=== PATIENT | male | born 2000 | race Caucasian/White ===

== ENCOUNTER 2023-05-03 15:05 | Emergency (ER) | payer OTHER, SELFPAY ==
[2023-05-03 15:29] VITALS: BP 119/75; PULSE 67; RESP 18; TEMP 36.3; O2SAT 99
--- NOTE | 2023-05-03 15:58 | ED_ITS ---
HPI - Wound/Laceration General Time Seen by Provider: 15:59 Date Seen: 05/03/23 Chief Complaint: Laceration/Wound Stated Complaint: Cut left index finger at work Time Seen by Provider: 05/03/23 15:58 Source: patient and RN notes reviewed Mode of arrival: ambulatory Limitations: no limitations History of Present Illness HPI narrative: Patient is a 22-year-old male coming in after cutting his left index finger. He cut it longitudinally along the medial side of the finger. There is some mild oozing on arrival, bleeding is controlled with compression. He is unaware of his tetanus status. No numbness or tingling. No other injuries. Happened just prior to coming in. Place: work Related Data Home Medications Medication Instructions Recorded Confirmed No Known Home Medications 05/03/23 05/03/23 Allergies Allergy/AdvReac Type Severity Reaction Status Date / Time No Known Drug Allergies Allergy Verified 05/03/23 15:29 Review of Systems Narrative: As per HPI Exam Const: Vital Signs, click to edit/add: Vital Signs - 24 hr 05/03/23 15:29 Temperature 97.3 F L Pulse Rate [Right Pulse Oximeter] 67 Respiratory Rate 18 Blood Pressure [Ri ght Upper Arm] 119/75 Pulse Oximetry 99 Oxygen Delivery Me thod Room Air Documenting provider has reviewed patient's vital signs: yes Other: Patient's bandaging was removed, has a vertically situated laceration running along the medial side of his left index finger. There is a slight curvature but overall linear, total length around 1.5 cm. Slight wound edge oozing of blood. Just into the subcutaneous tissue, does not go deeper. With movement the skin edges do not stay well approximated, do feel that this would be best suited with suture repair. Course Course Hospital Course: Nursing staff looked up his tetanus, up-to-date in 2014. Vital Signs Vital signs: Initial Vital Signs Temperature 97.3 F L 05/03/23 15:29 Temperature Source Temporal Artery Scan 05/03/23 15:29 Pulse Rate 67 05/03/23 15:29 Respiratory Rate 18 05/03/23 15:29 Blood Pressure 119/75 05/03/23 15:29 Blood Pressure Mean 89 05/03/23 15:29 Blood Pressure Position Sitting 05/03/23 15:29 Pulse Oximetry 99 05/03/23 15:29 Oxygen Delivery Method Room Air 05/03/23 15:29 Vital Signs Temperature 97.3 F L 05/03/23 15:29 Pulse Rate 67 05/03/23 15:29 Respiratory Rate 18 05/03/23 15:29 Blood Pressure 119/75 05/03/23 15:29 Pulse Oximetry 99 05/03/23 15:29 Oxygen Delivery Method Room Air 05/03/23 15:29 Temperature 97.3 F L 05/03/23 15:29 Pulse Rate 67 05/03/23 15:29 Respiratory Rate 18 05/03/23 15:29 Blood Pressure 119/75 05/03/23 15:29 Pulse Oximetry 99 05/03/23 15:29 Oxygen Delivery Method Room Air 05/03/23 15:29 Discharge Plan Discharge Clinical Impression: Finger laceration Patient Disposition: Home, Self-Care Condition: Stable Instructions: Care For Your Stitches (ED), Finger Laceration (ED) Additional Instructions: Need to keep this finger clean and dry at work, use bacitracin and bandages. May wash your hands and shower as usual. If there is discomfort, can take Tylenol and/or ibuprofen per bottle directions as needed. Need to schedule clinic follow-up in about 7-10 days to assess the wound for suture removal. If there are concerns for infection, please seek re-evaluation. Would recommend keeping the wound covered with a bandage when out in public to help keep out bacteria/infection. Activity Level: Activity as Tolerated Prescriptions: No Action No Known Home Medications Follow Up/Referrals: Provider,Not a Local [Primary Care Provider] - Stand Alone Forms: [facility] Info Instructions Procedures Laceration Laceration 1: Pre procedure diagnosis: Left index finger laceration Post procedure diagnosis: Same Site marking: not applicable Verification/time out: correct patient Name of person performing procedure: Fina Barber Site: hand Side (If applicable): left Size (cm): 1.5 Description: linear Depth: simple, single layer Local Anesthetic: lidocaine 1% Amount of anesthesia used (mL): 5 Pre-repair: wound explored, irrigated extensively and deep structures intact Skin layer closed with: other (Ethilon) Size (cm): 4-0 Number of sutures: 4 Technique: simple, interrupted Estimated blood loss (if any): less than 5mls Conclusion: patient tolerated procedure
[2023-05-03] MEDS: LIDOCAINE 1% MDV 5 ML INJECTION (16:34)
== END 2023-05-03 16:59 | disposition home or self-care (01) ==
PROVIDERS: Emergency Provider Family Medicine
DX: S61.211A Laceration without foreign body of left index finger without damage to nail, initial encounter (principal)
CPT/HCPCS: 12001; 99283